=== PATIENT | male | born 1945 | race Caucasian/White ===

== ENCOUNTER 2023-01-15 11:33 | Emergency (ER) | payer OTHER, MEDICARE ==
[~2023-01-15] VITALS: Ht 167.6 cm; Wt 78.0 kg
[2023-01-15 11:46] VITALS: BP 130/71
[2023-01-15 12:01] VITALS: BP 120/65
[2023-01-15 12:16] VITALS: BP 122/102
[2023-01-15 12:33] VITALS: BP 101/81
[2023-01-15 12:40] VITALS: BP 101/81
== END 2023-01-15 12:45 | disposition left against medical advice (07) | DRG 552 ==
LOC: ED 11:33
DX: M54.50 Low back pain, unspecified (principal); M25.561 Pain in right knee; S61.411A Laceration without foreign body of right hand, initial encounter; S60.222A Contusion of left hand, initial encounter; V47.5XXA Car driver injured in collision with fixed or stationary object in traffic accident, initial encounter; Z53.29 Procedure and treatment not carried out because of patient's decision for other reasons; Z96.651 Presence of right artificial knee joint